=== PATIENT | male | born 1980 | race African-American/Black ===

== ENCOUNTER 2022-04-13 20:40 | Emergency (ER) | payer MEDICARE, MEDICAID ==
[2022-04-13 21:21] LABS: #Basophils 0.1 thou/uL (0.0-0.2); #Eosinphils 0.1 thou/uL (0.0-0.7); #Lymphocytes 1.6 thou/uL (1.20-3.40); #Monocytes 0.8 thou/uL (0.11-0.59); #Neutrophils 5.9 thou/uL (1.40-6.50); %Basophils 0.6 % (0.0-1.0); %Eosinophils 1.3 % (0.0-10.0); %Monocytes 9.5 % (0.0-10.0); %Neutrophils 69.6 % (42.0-75.0); Hemoglobin 12.1 g/dL (14.0-18.0); Mean Corpuscular HGB CONC 32.1 g/dL (32.0-36.0); Mean Corpuscular Hemoglobin 27.9 pg (27.0-31.0); Mean Corpuscular Volume 87.1 fL (78.0-98.0); Mean Platelet Volume 8.6 fL (7.4-10.4); Platelet Count 168 thou/uL (130-400); RBC Distribution Width 13.3 % (11.5-14.5); Red Blood Cell (RBC) Count 4.33 mill/uL (4.70-6.10); White Blood Cell (WBC) Count 8.5 thou/uL (4.8-10.8)
[2022-04-13] MEDS ORDERED: cefTRIAXone\\ROCEPHIN 500 MG VIAL ONE (21:27)
[2022-04-13] MEDS ORDERED: Azithromycin 250 MG TAB ONE (21:27)
[2022-04-13] MEDS ORDERED: Lidocaine 1% MPF 2 ML VIAL ONE (21:28)
[2022-04-13 21:36] LABS: ALT (SGPT) 24 U/L (8-55); AST (SGOT) 49 U/L (5-34); Albumin 3.5 g/dL (3.5-5.0); Alkaline Phosphatase 53 U/L (40-110); Anion Gap 12 mmol/L (10-20); BUN (Urea Nitrogen) 15 mg/dL (8.9-20.6); Bilirubin, Total 0.4 mg/dL (0.2-1.2); Calc. Creatinine Clearance 0 mL/min (70-130); Calcium 8.1 mg/dL (7.8-10.44); Carbon Dioxide 26 mmol/L (22-29); Chloride 105 mmol/L (98-107); Globulin 2.9 g/dL (2.4-3.5); Glucose 75 mg/dL (70-105); Protein, Total 6.4 g/dL (6.0-8.3); Sodium 139 mmol/L (136-145)
[2022-04-13 21:42] LABS: Acetaminophen Less than 10.0 mcg/mL (10.0-30.0); Alcohol Less than 10 mg/dL (Less than 10); Salicylate Less than 8.0 mg/dL (15.0-30.0)
[2022-04-13 22:35] LABS: Bilirubin Negative (Negative); Blood, Urine Negative (Negative); Clarity Clear (Clear); Glucose, Urine (Dipstick) Normal (Negative); Ketone, Urine Negative (Negative); Leukocyte 500 Leu/uL (Negative); Mucous/LPF Rare LPF (<2+); Nitrite Negative (Negative); Protein, Urine (Dipstick) 20 mg/dL (Neg-Trace); RBC/HPF 0-3 HPF (0-3); Specific Gravity, Urine 1.028 (1.002-1.036); Squamous Epithelial None Seen HPF (0-3); WBC/HPF 21-50 HPF (0-3); pH, Urine 6.5 (5.0-9.0)
[2022-04-13 22:42] LABS: Bacteria/HPF Rare-Few HPF (None Seen)
[2022-04-13 22:43] LABS: Amphetamine Not Detected (NotDetected); Barbiturates Screen Not Detected (NotDetected); Benzodiazepine Screen Not Detected (NotDetected); Cocaine Metabolite Screen Not Detected (NotDetected); Methadone Not Detected (NotDetected); Methamphetamine Not Detected (NotDetected); Opiate Screen Not Detected (NotDetected); Oxycodone Screen Not Detected (NotDetected); Phencyclidine (PCP) Not Detected (NotDetected); THC/Cannabinoid Screen Detected (NotDetected); Tricyclic Screen Not Detected (NotDetected)
[2022-04-14 11:35] LABS: Chlam.trachomatis by PCR,Urine Not Detected (NotDetected)
== END 2022-04-13 23:02 | disposition home or self-care (01) ==
LOC: ERS 20:40
DX: A54.01 Gonococcal cystitis and urethritis, unspecified (principal); R10.9 Unspecified abdominal pain; R07.9 Chest pain, unspecified
CPT/HCPCS: 36415; 80053; 80306; 80307; 81003; 81015; 83690; 84484; 85025; 87491; 87591; 93005; 96372; J0696

== ENCOUNTER 2022-08-22 19:36 | Emergency (ER) | payer OTHER ==
[2022-08-22] MEDS ORDERED: Ketorolac Tromethamine 30 MG/ML VIAL ONE (19:59)
== END 2022-08-22 21:10 | disposition home or self-care (01) ==
LOC: ERS 19:36
DX: S20.219A Contusion of unspecified front wall of thorax, initial encounter (principal); F17.210 Nicotine dependence, cigarettes, uncomplicated; Y04.8XXA Assault by other bodily force, initial encounter
CPT/HCPCS: 71045; 93005; J1885

== ENCOUNTER 2022-08-23 05:30 | Emergency (ER) | payer OTHER ==
[2022-08-23] MEDS ORDERED: Ibuprofen 200 MG TAB ONE (06:05)
[2022-08-23] MEDS ORDERED: Acetaminophen 500 MG TAB ONE (06:05)
== END 2022-08-23 07:05 | disposition home or self-care (01) ==
LOC: ERS 05:30
DX: R07.9 Chest pain, unspecified (principal); F17.210 Nicotine dependence, cigarettes, uncomplicated; Y09 Assault by unspecified means
CPT/HCPCS: 71045; 93005; 96372; J1885